=== PATIENT | female | born 1990 | race Caucasian/White ===

== ENCOUNTER 2024-03-05 15:28 | Day surgery (SDC) | payer OTHER ==
[2024-03-05] MEDS ORDERED: hydrALAZINE 20 MG/ML VIAL SLOW IVP PRN (15:46)
== END 2024-03-05 18:51 | disposition home health service (06) ==
LOC: CSHLD/OP 15:28
PROVIDERS: ATTEND Obstetrics & Gynecology
DX: O36.8130 Decreased fetal movements, third trimester, not applicable or unspecified (principal); O00.01 Abdominal pregnancy with intrauterine pregnancy; Z3A.39 39 weeks gestation of pregnancy; Z79.899 Other long term (current) drug therapy
CPT/HCPCS: 76819

== ENCOUNTER 2024-03-14 21:53 | Inpatient (IN) | payer OTHER ==
[2024-03-14] MEDS: Lactated Ringer's 1,000 ML IV SCH (22:20)
[2024-03-14] MEDS ORDERED: Acetaminophen 500 MG TAB PO PRN (22:45)
[2024-03-14] MEDS ORDERED: fentaNYL 50 mcg/mL 1 mL Vial SLOW IVP PRN (22:45)
[2024-03-14] MEDS ORDERED: Ondansetron PF 4 MG/2 ML Vial IVP PRN (22:45)
[2024-03-14] MEDS ORDERED: Promethazine HCl 25 MG/ML VIAL IM PRN (22:45)
[2024-03-14] MEDS ORDERED: hydrALAZINE 20 MG/ML VIAL SLOW IVP PRN (22:45)
[2024-03-14] MEDS ORDERED: Lidocaine 1% (PF) 30 ML VIAL SC PRN (23:00)
[2024-03-14] MEDS ORDERED: Oxytocin 30 units/NS 500 ML 500 ML IVPB SCH (23:00)
[2024-03-14] MEDS: Oxytocin 30 units/NS 500 ML 500 ML IV SCH (23:05)
[2024-03-14 23:35] LABS: Hemoglobin 10.9 g/dL (12.0-15.5); Mean Corpuscular Hemoglobin 28.8 pg (27.0-33.0); Mean Corpuscular Volume 87.1 fL (81.6-98.3); Mean Platelet Volume 11.5 fL (7.4-10.4); Platelet Count 206 10x3/uL (150-450); RBC Distribution Width 13.2 % (11.5-14.5); Red Blood Cell (RBC) Count 3.79 10x6/uL (3.90-5.03); White Blood Cell (WBC) Count 7.7 10x3/uL (3.5-10.5)
[2024-03-15 00:10] LABS: Syphilis Antibody Nonreactive (Nonreactive)
[2024-03-15 00:11] LABS: HBsAg Index 0.19 S/CO (0-0.99); Hep B Surf Ag - L&D Non-Reactive S/CO (NonReactive)
[2024-03-15 01:46] VITALS: BMI 29.5
[2024-03-15] MEDS ORDERED: Moisturizing Cream (Eucerin) 113 GM JAR TOP PRN (08:48)
[2024-03-15] MEDS ORDERED: Ondansetron PF 4 MG/2 ML Vial IVP PRN (08:48)
[2024-03-15] MEDS ORDERED: Lactated Ringer's 500 ML IV PRN (08:48)
[2024-03-15] MEDS ORDERED: diphenhydrAMINE 50 MG/ML VIAL IVP PRN (08:48)
[2024-03-15] MEDS ORDERED: ePHEDrine Sulfate 50 MG/10 ML VIAL SLOW IVP PRN (08:48)
[2024-03-15] MEDS ORDERED: Promethazine HCl 25 MG/ML VIAL IM PRN (08:48)
[2024-03-15] MEDS ORDERED: Naloxone HCl 0.4 mg/ml Vial IVP PRN ×2 (08:48)
[2024-03-15] MEDS ORDERED: Acetaminophen 325 MG TAB PO PRN (08:48)
[2024-03-15] MEDS ORDERED: Communication Order-Pharmacy FS SCH (09:00)
[2024-03-15] MEDS: fentaNYL 2 mcg/Ropivacaine 0.2% Epidural 100 ML CADD EPIDURAL SCH (09:04)
[2024-03-15 13:23] LABS: Analyzer IN Cardio CS NICU; RapidComm Collect By OR NURSE
[2024-03-15 13:24] LABS: Analyzer IN Cardio CS NICU; RapidComm Collect By OR NURSE; pH (Cord, venous) 7.419 (7.250-7.350)
[2024-03-15] MEDS ORDERED: Lanolin Ointment 7 GM TUBE TOP PRN (17:34)
[2024-03-15] MEDS ORDERED: hydrALAZINE 20 MG/ML VIAL SLOW IVP PRN (17:34)
[2024-03-15] MEDS ORDERED: Bisacodyl 10 MG SUPP PR PRN (17:34)
[2024-03-15] MEDS ORDERED: Oxytocin 30 units/NS 500 ML 500 ML IV SCH (17:34)
[2024-03-15] MEDS ORDERED: Milk Of Magnesia 30 ML UDCUP PO PRN (17:34)
[2024-03-15] MEDS ORDERED: HYDROcodone/Acetaminophen 5/325 mg Tablet PO PRN (17:34)
[2024-03-15] MEDS: fentaNYL/Ropivacaine Epidural 100 ML ONE (17:51)
[2024-03-15] MEDS: Boostrix 0.5 ML (Tdap) VIAL (>/=7 yrs of age) IM ONE (17:53)
[2024-03-15] MEDS: Benzocaine-Menthol 82.5 ML CAN TOP PRN (18:21)
[2024-03-15] MEDS: Ibuprofen 800 MG TAB PO SCH (18:21)
[2024-03-15] MEDS: HYDROcodone/Acetaminophen 5/325 mg Tablet PO PRN (21:24)
[2024-03-15] MEDS: Docusate 100 MG CAP PO SCH (22:52)
[2024-03-15] MEDS: Ferrous Sulfate 325 MG TAB PO SCH (23:25)
[2024-03-16] MEDS ORDERED: Bupivacaine 0.25% HCL 30 ML VIAL ONE (08:00)
[2024-03-16] MEDS: Prenatal Vitamin 1 TAB PO SCH (08:51)
[2024-03-16] MEDS: Ferrous Sulfate 325 MG TAB PO SCH (11:24)
[2024-03-16 11:55] VITALS: BP 98/57; TEMP 98
== END 2024-03-16 15:10 | disposition home or self-care (01) | DRG 807 ==
LOC: CSHLD/OP 21:53 → CSHLD 22:30 → CSHPP 03-15 15:33
PROVIDERS: ADMIT Obstetrics & Gynecology; ATTEND Obstetrics & Gynecology
PROC: 10E0XZZ Delivery of Products of Conception, External Approach (ICD-10-PCS; principal; 2024-03-15)
PROC: 0KQM0ZZ Repair Perineum Muscle, Open Approach (ICD-10-PCS; 2024-03-15)
DX: O48.0 Post-term pregnancy (principal); Z37.0 Single live birth; Z3A.40 40 weeks gestation of pregnancy; O70.1 Second degree perineal laceration during delivery
CPT/HCPCS: 36415; 82805; 85027; 86780; 86850; 86900; 86901; 87340; J0665; J2590; J7120